=== PATIENT | female | born 1945 | race Caucasian/White ===

== ENCOUNTER → 2021-01-28 | Outpatient (CLI) | payer MEDICARE, OTHER ==
[~2021-01-28] MED LIST: ASTELIN; BABY81CH; CALCIUM CITRATE; CENTRUM SILVER; CLARINEX; CORE6.25; FELO10TA; LISI20TA5; NASONEX NASAL SPRAY; VITAMIN B-12; VITAMIN D50000 UNT; ZOCO20TA
--- NOTE | 2021-01-28 13:08 | REP ---
INDICATION: PAIN. TECHNIQUE: Four views FINDINGS: Calcifications are seen in the region of the lunatotriquetral ligament. There is no acute fracture or destructive osseous lesion. IMPRESSION: Soft tissue calcifications as described above. Exact etiology uncertain. They likely represent chronic changes. Consider wrist MRI if intercarpal ligamentous stability is of clinical concern. <Electronically signed by Miah Watson > 01/28/21 0099
== END ==
LOC: M WUC 12:18
PROVIDERS: ATTEND Physician Assistant
DX: M25.531 Pain in right wrist (principal)

== ENCOUNTER → 2021-12-16 | Outpatient (CLI) | payer MEDICARE, OTHER | LOC: M WHC 13:27 | PROVIDERS: ATTEND Internal Medicine | DX: Z12.31 Encounter for screening mammogram for malignant neoplasm of breast (principal); M81.0 Age-related osteoporosis without current pathological fracture ==

== ENCOUNTER → 2023-01-01 | Outpatient (CLI) | payer MEDICARE, OTHER | LOC: M WHC 11:36 | PROVIDERS: ATTEND Internal Medicine | DX: Z12.31 Encounter for screening mammogram for malignant neoplasm of breast (principal) ==

== ENCOUNTER 2023-05-13 08:03 | Day surgery (SDC) | payer MEDICARE, OTHER ==
[~2023-05-13] VITALS: Ht 167.6 cm; Wt 59.6 kg
[~2023-05-13 08:03] MED LIST changes: +B-12100010 PO; +CALC250T PO; +CETI-24 PO; +ERGO500029 PO; +FELO10TA28 PO; +LEVO25TA5 PO; +LOSA100T46 PO; +NS 1,000 ML IV ONE; +RABE1TAB4 PO; +SIMV20TA22 PO; +THERTAB52 PO; +TRAD5TAB PO; +TRAV2.5D; +VENL37TA PO; +XARE20TA PO
[2023-05-13] MEDS ORDERED: LIDOCAINE 2% 100MG/5ML SDV (FOR ANES.) As Ordered ONE (08:13)
[2023-05-13] MEDS ORDERED: propofoL 200 MG/20 ML VIAL As Ordered ONE ×2 (08:13→08:14)
[2023-05-13 09:43] VITALS: TEMP 97.5
[2023-05-13 10:02] VITALS: BP 143/65; O2SAT 98
== END 2023-05-13 10:09 | disposition home or self-care (01) ==
LOC: M OPP 08:03
PROVIDERS: ATTEND Internal Medicine Gastroenterology
DX: Z86.010 Personal history of colon polyps (principal); D12.0 Benign neoplasm of cecum; K64.0 First degree hemorrhoids; K57.30 Diverticulosis of large intestine without perforation or abscess without bleeding; I10 Essential (primary) hypertension; E78.5 Hyperlipidemia, unspecified; E11.9 Type 2 diabetes mellitus without complications; E03.9 Hypothyroidism, unspecified; K58.9 Irritable bowel syndrome, unspecified; K21.9 Gastro-esophageal reflux disease without esophagitis; M19.90 Unspecified osteoarthritis, unspecified site; F41.9 Anxiety disorder, unspecified; Z86.718 Personal history of other venous thrombosis and embolism; Z88.1 Allergy status to other antibiotic agents; Z88.5 Allergy status to narcotic agent; Z88.8 Allergy status to other drugs, medicaments and biological substances; Z79.01 Long term (current) use of anticoagulants; Z79.84 Long term (current) use of oral hypoglycemic drugs; Z79.890 Hormone replacement therapy; Z79.899 Other long term (current) drug therapy

== ENCOUNTER 2023-07-24 15:30 | Emergency (ER) | payer MEDICARE, OTHER ==
[~2023-07-24] VITALS: Ht 167.6 cm; Wt 63.7 kg
[~2023-07-24 15:30] MED LIST changes: -NS 1,000 ML IV ONE
[2023-07-24 21:36] VITALS: BP 176/81; TEMP 97; O2SAT 98
== END 2023-07-24 21:42 | disposition home or self-care (01) ==
LOC: M ED 15:30
DX: Z00.8 Encounter for other general examination (principal); I10 Essential (primary) hypertension; Z79.899 Other long term (current) drug therapy; E78.5 Hyperlipidemia, unspecified; E03.9 Hypothyroidism, unspecified; G43.909 Migraine, unspecified, not intractable, without status migrainosus; Z90.49 Acquired absence of other specified parts of digestive tract; Z88.5 Allergy status to narcotic agent; Z88.8 Allergy status to other drugs, medicaments and biological substances

== ENCOUNTER 2023-12-02 06:07 | Day surgery (SDC) | payer MEDICARE ==
[~2023-12-02] VITALS: Ht 167.6 cm; Wt 61.5 kg
[~2023-12-02 06:07] MED LIST changes: +PHENYLEPHRINE 10% OPHTH SOL 5ML OS PRN; -TRAV2.5D; +TRAV2.5D OU; +XARE10TA PO
[2023-12-02] MEDS: TROPICAMIDE 1% OPHTH SOLN 15ML OS SCH (06:50)
[2023-12-02] MEDS: PHENYLEPHRINE 2.5% OPHTH SOL 2ML OS SCH (06:50)
[2023-12-02] MEDS: ATROPINE SULFATE 1% OPHTH SOLN 2ML BTL OS SCH (06:51)
[2023-12-02] MEDS: LIDOCAINE 3.5 % 1ML OPHTH TOPICAL GEL OU ONE (06:51)
[2023-12-02] MEDS ORDERED: fentaNYL 100 MCG/2 ML INJECTION As Ordered ONE (07:28)
[2023-12-02] MEDS: CEFUROXIME 1MG/0.1ML INTRACAMERAL INJ As Ordered ONE (07:42)
[2023-12-02] MEDS: LIDOCAINE 1% SDV 5ML VIAL As Ordered ONE (07:42)
[2023-12-02] MEDS: BSS IRRIG/VANCO(10MG)/TOBRA(5MG)/EPINEPH(1:1000-0.5CC)500ML BAG-ORONLY As Ordered ONE (07:42)
[2023-12-02] MEDS ORDERED: MIDAZOLAM INJ 2MG/2ML VIAL As Ordered ONE (07:44)
[2023-12-02] MEDS ORDERED: TOBRAMYCIN 0.3% OPHTH SOLN 5ML OS ONE (08:05)
[2023-12-02 08:19] VITALS: BP 171/85; TEMP 98; O2SAT 97
== END 2023-12-02 08:35 | disposition home or self-care (01) ==
LOC: M SDC 06:07
PROVIDERS: ATTEND Ophthalmology
DX: E11.36 Type 2 diabetes mellitus with diabetic cataract (principal); H25.12 Age-related nuclear cataract, left eye; H40.9 Unspecified glaucoma; I10 Essential (primary) hypertension; E78.00 Pure hypercholesterolemia, unspecified; E03.9 Hypothyroidism, unspecified; K58.9 Irritable bowel syndrome, unspecified; K21.9 Gastro-esophageal reflux disease without esophagitis; Z79.899 Other long term (current) drug therapy; Z79.890 Hormone replacement therapy; Z86.718 Personal history of other venous thrombosis and embolism; Z90.710 Acquired absence of both cervix and uterus; Z88.8 Allergy status to other drugs, medicaments and biological substances; Z79.01 Long term (current) use of anticoagulants
CPT/HCPCS: 66988; C1783; J0697; J2250; J3010; V2632

== ENCOUNTER → 2024-02-05 | Outpatient (CLI) | payer MEDICARE ==
[~2024-02-05] MED LIST changes: -PHENYLEPHRINE 10% OPHTH SOL 5ML OS PRN
== END ==
LOC: M WHC 13:02
PROVIDERS: ATTEND Nurse Practitioner Family
DX: Z12.31 Encounter for screening mammogram for malignant neoplasm of breast (principal)

== ENCOUNTER → 2024-06-08 | Outpatient (CLI) | payer MEDICARE | LOC: M CARPUL 13:02 | PROVIDERS: ATTEND Internal Medicine | DX: R01.1 Cardiac murmur, unspecified (principal) ==

== ENCOUNTER → 2024-10-07 | Outpatient (CLI) | payer MEDICARE | LOC: M PLAIMG 12:10 | PROVIDERS: ATTEND Nurse Practitioner Family | DX: M54.2 Cervicalgia (principal) ==

== ENCOUNTER → 2024-11-29 | Outpatient (REF) | payer MEDICARE | LOC: M LAB REF 17:25 | PROVIDERS: ATTEND Internal Medicine | DX: D51.9 Vitamin B12 deficiency anemia, unspecified (principal); D68.69 Other thrombophilia ==

== ENCOUNTER → 2025-05-15 | Outpatient (CLI) | payer MEDICARE ==
[~2025-05-15] MED LIST changes: -RABE1TAB4 PO; +RABE1TAB5 PO
== END ==
LOC: M WHC 13:26
PROVIDERS: ATTEND Internal Medicine
DX: M81.0 Age-related osteoporosis without current pathological fracture (principal); Z12.31 Encounter for screening mammogram for malignant neoplasm of breast; R92.323 Mammographic fibroglandular density, bilateral breasts